=== PATIENT | female | born 1945 | race Caucasian/White ===

== ENCOUNTER 2016-10-19 07:08 | Day surgery (SDC) | payer OTHER, MEDICARE ==
[2016-10-18 15:01] VITALS: BMI 34.2
[2016-10-19] MEDS ORDERED: PROPOFOL 20 ML ONE (07:48)
[2016-10-19 08:39] VITALS: TEMP 97.8
[2016-10-19 09:29] VITALS: BP 127/68; PULSE 77
--- NOTE | 2016-10-20 13:43 | PATH ---
Surgical Pathology Report Patient Name: CARMELA DENISE [facility]. Rec. #: [id number] /Age/Gender: 1945 (Age: 71) / F Account: [id number] Location: U-ENDOSCOPY Taken: 10/19/2016 Received: 10/19/2016 Reported: 10/20/2016 Physicians: Ruben Mccauley M.D. Specimen(s) Received A: BX DUODENUM B: BX ANTRUM C: BX SCHATZKI'S RING D: BX MID ESOPHAGUS Clinical History Dysphagia Erosive gastritis, hiatal area, GERD, Schatzki's ring, esophageal stricture Final Diagnosis A. DUODENUM, SECOND PORTION BULB, BIOPSY: DUODENAL MUCOSA WITH CHRONIC INFLAMMATION AND FOCAL JAMAAL'S GLANDS HYPERPLASIA. NO HISTOLOGIC EVIDENCE OF GLUTEN SENSITIVE ENTEROPATHY (CELIAC DISEASE). B. STOMACH, ANTRUM, BIOPSY: GASTRIC ANTRAL MUCOSA WITH MODERATE CHRONIC GASTRITIS AND REACTIVE GASTROPATHY WITH FOCAL SURFACE EROSION. IMMUNOSTAIN FOR H. PYLORI IS NEGATIVE FOR ORGANISMS. C. SCHATZKI'S RING, BIOPSY: SQUAMOUS MUCOSA WITH CHRONIC INFLAMMATION AND REFLUX TYPE CHANGES. NO COLUMNAR EPITHELIUM PRESENT (NO INTESTINAL METAPLASIA/MALIN'S ESOPHAGUS IDENTIFIED). D. ESOPHAGUS, MID, BIOPSY: SQUAMOUS EPITHELIUM WITH CHRONIC INFLAMMATION AND REFLUX TYPE CHANGES. NO EVIDENCE OF EOSINOPHILIC ESOPHAGITIS. Electronically Signed Marciano Mitchell M.D. Gross Description A. Received in formalin, labeled "biopsy duodenum second portion and bulb" are 3 marinelli, irregular portions of soft tissue ranging from 0.3-0.4 cm in greatest dimension. The specimens are submitted in toto in one cassette. B. Received in formalin, labeled "biopsy antrum" are 4 marinelli, irregular portions of soft tissue ranging from 0.2-0.5 cm in greatest dimension. The specimens are submitted in toto in one cassette. C. Received in formalin, labeled "biopsy Schatzki's ring" are 3 marinelli, irregular portions of soft tissue ranging from 0.2-0.4 cm in greatest dimension. The specimens are submitted in toto in one cassette. D. Received in formalin, labeled "biopsy midesophagus" are 2 marinelli, irregular portions of soft tissue measuring 0.3 and 0.6 cm in greatest dimension. The specimens are submitted in toto in one cassette. DL/10/19/201610/19/2016
== END 2016-10-19 09:29 | disposition home or self-care (01) ==
LOC: JASU-ENDO 07:08
PROVIDERS: ATTEND Internal Medicine Gastroenterology
PROC: 0DB48ZX Excision of Esophagogastric Junction, Via Natural or Artificial Opening Endoscopic, Diagnostic (ICD-10-PCS; 2016-10-19)
PROC: 0DB68ZX Excision of Stomach, Via Natural or Artificial Opening Endoscopic, Diagnostic (ICD-10-PCS; 2016-10-19)
PROC: 0DB98ZX Excision of Duodenum, Via Natural or Artificial Opening Endoscopic, Diagnostic (ICD-10-PCS; 2016-10-19)
PROC: 0DB28ZX Excision of Middle Esophagus, Via Natural or Artificial Opening Endoscopic, Diagnostic (ICD-10-PCS; 2016-10-19)
PROC: 0D748ZZ Dilation of Esophagogastric Junction, Via Natural or Artificial Opening Endoscopic (ICD-10-PCS; principal; 2016-10-19 08:00)
DX: K21.9 Gastro-esophageal reflux disease without esophagitis (principal); K44.9 Diaphragmatic hernia without obstruction or gangrene; K22.2 Esophageal obstruction; K29.70 Gastritis, unspecified, without bleeding; K22.8 Other specified diseases of esophagus
CPT/HCPCS: 88305-TC; 88342-TC

== ENCOUNTER 2020-11-26 12:58 | Emergency (ER) | payer OTHER, MEDICARE ==
[2020-11-26 13:04] VITALS: BP 144/81; BMI 32.5
[2020-11-26] MEDS ORDERED: ACETAMINOPHEN 1000 MG/100 ML VIAL (NON FORMULARY) IVPB ONE (14:01)
[2020-11-26] MEDS ORDERED: ONDANSETRON 4 MG/2 ML VIAL IVPUSH ONE (14:01)
[2020-11-26] MEDS ORDERED: SODIUM CHLORIDE 0.9% 500 ML INFUS.BAG IV ONE (14:01)
[2020-11-26] MEDS ORDERED: ACETAMINOPHEN INJECTION 100 ML IVPB ONE (14:22)
[2020-11-26] MEDS ORDERED: ONDANSETRON 4 MG/2 ML VIAL ONE (14:23)
[2020-11-26] MEDS ORDERED: FAMOTIDINE 20 MG/50 ML IVPB 20 MG/50 ML MG IVPB ONE ×2 (14:34→17:26)
[2020-11-26 14:57] VITALS: PULSE 98; TEMP 99.9
[2020-11-26 15:18] LABS: BASO % 0.1 % (0-2.0); EOS % 0.1 % (0-4.5); HEMATOCRIT 36.6 % (32.4-45.2); HEMOGLOBIN 12.6 GM/dL (10.7-15.3); LYMPH % 24.1 % (8-40); MCH 31.6 pg (25.7-33.7); MCHC 34.6 g/dl (32.0-36.0); MEAN CELL VOLUME 91.4 fl (80-96); MEAN PLT VOLUME 8.2 fl (7.5-11.1); MONO % 7.1 % (3.8-10.2); NEUT % 68.6 % (42.8-82.8); PLATELET COUNT 201 K/MM3 (134-434); RBC 4.01 M/mm3 (3.60-5.2); RDW 13.3 % (11.6-15.6)
[2020-11-26 15:25] LABS: INR 1.11 (0.83-1.09); PROTHROMBIN TIME (PATIENT) 13.4 SEC (9.7-13.0)
[2020-11-26 15:28] LABS: ACTIVATED PTT 28.1 SECONDS (25.2-36.5)
[2020-11-26 15:37] LABS: CHLORIDE 103 mmol/L (98-107); POTASSIUM 3.8 mmol/L (3.5-5.1); SODIUM 135 mmol/L (136-145)
[2020-11-26 15:40] LABS: CALCIUM 9.1 mg/dL (8.5-10.1)
[2020-11-26 15:41] LABS: ALBUMIN 3.3 g/dl (3.4-5.0); ANION GAP 8 MMOL/L (8-16); BLOOD UREA NITROGEN 17.2 mg/dL (7-18); CO2 24 mmol/L (21-32); GLUCOSE,RANDOM 86 mg/dL (74-106); LIPASE 101 U/L (73-393)
[2020-11-26 15:43] LABS: BILIRUBIN,DIRECT 0.2 mg/dL (0.0-0.2); PHOSPHOROUS 2.3 mg/dL (2.5-4.9); SGOT/AST 22 U/L (15-37); SGPT/ALT 21 U/L (13-61)
[2020-11-26 15:44] LABS: CREATININE 0.7 mg/dL (0.55-1.3)
[2020-11-26 15:45] LABS: BILIRUBIN,TOTAL 0.4 mg/dL (0.2-1); TOT PROT 6.8 g/dl (6.4-8.2)
[2020-11-26 15:46] LABS: ALK PHOS 63 U/L (45-117); LDH 404 U/L (84-246); N-TERMINAL BNP 21.7 pg/ml (5-125)
== END 2020-11-26 18:58 | disposition home or self-care (01) ==
LOC: JER 12:58
PROC: 3E033NZ Introduction of Analgesics, Hypnotics, Sedatives into Peripheral Vein, Percutaneous Approach (ICD-10-PCS; principal; 2020-11-26)
PROC: 3E033GC Introduction of Other Therapeutic Substance into Peripheral Vein, Percutaneous Approach (ICD-10-PCS; 2020-11-26)
DX: U07.1 COVID-19 (principal); R11.10 Vomiting, unspecified
CPT/HCPCS: 36415; 71045-TC-FY; 71275-TC; 74177-TC; 80053; 82248; 82550; 82728; 83605; 83615; 83690; 83735; 83880; 84100; 84484; 85025; 85379; 85610; 85730; 86140; 87040; 93005; 93010; 99285-25; J0131; Q9967

== ENCOUNTER 2021-06-09 09:51 | Emergency (ER) | payer OTHER, MEDICARE ==
[2021-06-09 10:09] VITALS: BP 178/86; PULSE 82; TEMP 97.7; BMI 33.5
== END 2021-06-09 12:55 | disposition home or self-care (01) ==
LOC: JER 09:51 → JERFT 09:51
DX: M25.532 Pain in left wrist (principal); S09.90XA Unspecified injury of head, initial encounter; W01.198A Fall on same level from slipping, tripping and stumbling with subsequent striking against other object, initial encounter; Y92.000 Kitchen of unspecified non-institutional (private) residence as the place of occurrence of the external cause
CPT/HCPCS: 70450-TC; 73090-TC-LT-FY; 73110-TC-LT-FY; 73130-TC-LT-FY; 99285-25

== ENCOUNTER 2022-03-16 04:34 | Day surgery (SDC) | payer OTHER, MEDICARE ==
[2022-02-09 09:46] VITALS: BMI 34.0
[2022-03-16 11:17] VITALS: TEMP 97.1
[2022-03-16 11:29] VITALS: PULSE 71
[2022-03-16 11:50] VITALS: BP 130/60
== END 2022-03-16 12:15 | disposition home or self-care (01) ==
LOC: JASU-ENDO 04:34
PROVIDERS: ATTEND Internal Medicine Gastroenterology
PROC: 0DBP8ZX Excision of Rectum, Via Natural or Artificial Opening Endoscopic, Diagnostic (ICD-10-PCS; principal; 2022-03-16 11:00)
DX: Z12.11 Encounter for screening for malignant neoplasm of colon (principal); K62.1 Rectal polyp; K57.30 Diverticulosis of large intestine without perforation or abscess without bleeding; K64.8 Other hemorrhoids; Z86.010 Personal history of colon polyps; Z80.0 Family history of malignant neoplasm of digestive organs
CPT/HCPCS: 88305-TC